=== PATIENT | female | born 1970 | race Caucasian/White ===

== ENCOUNTER 2016-08-14 04:59 | Inpatient (IN) | payer BC ==
[2016-08-14] MEDS ORDERED: EPINEPHRINE INJ/PF 1 MG/1 ML AMPULE IM ONE ×2 (05:11→07:04)
[2016-08-14] MEDS ORDERED: METHYLPREDNISOLONE INJ 125 MG/2 ML SDV IV ONE ×2 (05:12→09:00)
[2016-08-14] MEDS ORDERED: DIPHENHYDRAMINE HCL 50 MG/ML VIAL IV ONE (05:12)
[2016-08-14] MEDS ORDERED: FAMOTIDINE INJ/PF 20 MG/2 ML SDV IV ONE ×2 (05:12→08:30)
--- NOTE | 2016-08-14 05:19 | ER Document Report ---
ED Allergic Reaction - General Chief Complaint: Allergic Reaction Stated Complaint: POSSIBLE ALLERGY REACTION Time Seen by Provider: 08/14/16 05:11 Notes: Patient is a 46-year-old female who comes emergency department for chief complaint of allergic reaction, she states that she awoke this morning and found that she had lower lip swelling, swelling around her right eye towards her right ear, and an itchy rash over most of her body especially on the legs. She ate shrimp last night. Patient states that 2 days ago she broke out into a rash while walking outside, she was seen at urgent care and placed on prednisone and Benadryl, she states she took 60 mg of prednisone yesterday along with Benadryl. She had eaten shellfish just prior to this. Patient denies difficulty breathing or swallowing. Patient denies specific history of the same (although admits to mild rash with shellfish in the past), denies any new medications. - Related Data Allergies/Adverse Reactions: Sulfa (Sulfonamide Antibiotics) Allergy (Verified 08/14/16 05:15) Past Medical History - General Information source: Patient - Social History Smoking Status: Never Smoker Drug Abuse: None Lives with: Family Family History: Reviewed & Not Pertinent Psychiatric Medical History: Reports: Hx Depression Surgical Hx: Negative - Immunizations Immunizations up to date: Yes Hx Diphtheria, Pertussis, Tetanus Vaccination: Yes Review of Systems - Review of Systems Constitutional: No symptoms reported EENT: See HPI Cardiovascular: No symptoms reported Respiratory: No symptoms reported Gastrointestinal: No symptoms reported Genitourinary: No symptoms reported Female Genitourinary: No symptoms reported Musculoskeletal: No symptoms reported Skin: See HPI Hematologic/Lymphatic: No symptoms reported Neurological/Psychological: No symptoms reported Physical Exam - Vital signs Vitals: Temp Pulse Resp BP Pulse Ox 98.1 F 105 H 19 167/102 H 99 08/14/16 05:03 08/14/16 05:03 08/14/16 05:03 08/14/16 05:03 08/14/16 05:03 Interpretation: Normal - General General appearance: Anxious In distress: Mild - Patient with obvious rash, she is scratching, patient with obvious facial swelling - HEENT Head: Normocephalic, Atraumatic, Other - Patient with swelling of the lower lip on the right side, swelling around the periorbital area on the right side, eyelids are not completely shut Eyes: Normal Conjunctiva: Normal Extraocular movements intact: Yes Eyelashes: Normal Pupils: PERRL Pharynx: Normal. No: Uvular edema, Potential airway comprom. Neck: Normal - Respiratory Respiratory status: No respiratory distress. No: Labored, Tachypnea Chest status: Nontender Breath sounds: Normal. No: Decreased air movement, Stridor, Wheezing Chest palpation: Normal - Cardiovascular Rhythm: Regular, Tachycardia Heart sounds: Normal auscultation, S1 appreciated, S2 appreciated Murmur: No - Abdominal Inspection: Normal Distension: No distension Bowel sounds: Normal Tenderness: Nontender Organomegaly: No organomegaly - Back Back: Normal, Nontender - Extremities General upper extremity: Normal inspection, Nontender, Normal color, Normal ROM , Normal temperature General lower extremity: Normal inspection, Nontender, Normal color, Normal ROM , Normal temperature, Normal weight bearing. No: Jose's sign - Neurological Neuro grossly intact: Yes Cognition: Normal Orientation: AAOx4 [place] Coma Scale Eye Opening: Spontaneous [place] Coma Scale Verbal: Oriented Yasir Coma Scale Motor: Obeys Commands [place] Coma Scale Total: 15 Speech: Normal Motor strength normal: LUE, RUE, LLE, RLE Sensory: Normal - Psychological Associated symptoms: Anxious - Skin Skin Temperature: Warm Skin Moisture: Dry Skin Color: Normal Course - Re-evaluation Re-evalutation: 08/14/16 05:20 Lower lip swelling, slight swelling around the right orbit, with obvious urticaria mainly over the arms and legs, minimally on the back and abdomen. 0.3 mg IM epi given along with solu-medrol, benadryl, pepcid. Within 3 minutes patient had notable improvement especially of the lower lip and eye. On reevaluation patient's rash has completely resolved, facial swelling resolved. Patient only complaining of feeling jittery, lungs clear, airway intact. Will continue to monitor for potential rebound of symptoms after epinephrine wears off. Report given to Dr. Avila. 08/14/16 06:10 Still asymptomatic other than feeling slightly jittery, no evidence of rebound. Will continue to monitor. 08/14/16 07:15 Reevaluated again at bedside, patient noted to have right sided facial swelling the same as before, beginning to break out in hives over the face, body, legs, arms again. IM epi again given, again had rapid improvement. Starting epinephrine drip, will call for admission. Confirmed with Dr. Johnson. 08/14/16 07:[address] Simons, internal medicine, patient will be admitted to the hospital , she will come and evaluate the patient. - Vital Signs Vital signs: Temp Pulse Resp BP Pulse Ox 98.1 F 105 H 22 H 111/75 98 08/14/16 05:03 08/14/16 05:03 08/14/16 06:06 08/14/16 07:01 08/14/16 07:01 Critical Care Note - Critical Care Note Total time excluding time spent on procedures (mins): 40 - Anaphylaxis Comments: Please allow 40 minutes of critical care time for treatment of patient with anaphylaxis without shock, multiple re-evaluations, administration of multiple epinephrine doses, treatment with steroids, antihistamines, initiation of epinephrine drip, consultation and admission to the hospital. Discharge - Discharge Clinical Impression: Urticaria, Facial swelling Anaphylaxis Qualifiers: Encounter type: initial encounter Qualified Code(s): T78.2XXA - Anaphylactic shock, unspecified, initial encounter Allergic reaction Qualifiers: Encounter type: initial encounter Qualified Code(s): T78.40XA - Allergy, unspecified, initial encounter Condition: Stable Disposition: HOME, SELF-CARE Admitting Provider: Hospitalist Unit Admitted: ICU Additional Instructions: Continue the prednisone as directed, take either the zyrtec daily or the benadryl you were prescribed, in addition to this take the pepcid prescribed. If swelling of the face or difficulty breathing/swallowing occur, take the epi- pen and return immediately to the ED. Return for any other concerning symptoms. Prescriptions: Cetirizine HCl [Zyrtec 10 mg Tablet] 1 tab PO DAILY #30 tablet Epinephrine [Epipen 2-Gil] 0.3 mg IM ASDIR PRN #1 packet PRN Reason: Famotidine [Pepcid 20 mg Tablet] 20 mg PO BID #14 tablet Forms: Return to Work
[2016-08-14] MEDS ORDERED: ONDANSETRON HCL INJ/PF 4 MG/2 ML SDV IV ONE (06:05)
[2016-08-14] MEDS ORDERED: DEXTROSE 5%-WATER 250 ML with EPINEPHRINE/PF 1 MG IV PRN ×4 (07:13→09:21)
[2016-08-14] MEDS ORDERED: EPINEPHRINE INJ 30 MG/30 ML VIAL ONE (07:29)
[2016-08-14] MEDS ORDERED: EPINEPHRINE INJ/PF 1 MG/1 ML AMPULE ONE (07:32)
[2016-08-14] MEDS ORDERED: DIPHENHYDRAMINE HCL 50 MG/ML VIAL IV PRN (07:45)
[2016-08-14] MEDS ORDERED: EPINEPHRINE INJ/PF 1 MG/1 ML AMPULE IM PRN (08:19)
[2016-08-14] MEDS ORDERED: NORMAL SALINE 1000 ML 1,000 ML IV PRN (08:20)
[2016-08-14] MEDS ORDERED: ONDANSETRON HCL INJ/PF 4 MG/2 ML SDV IV PRN (08:28)
[2016-08-14] MEDS ORDERED: ACETAMINOPHEN 325 MG TABLET PO PRN (08:28)
[2016-08-14] MEDS ORDERED: LEVALBUTEROL HCL NEB 1.25 MG/3 ML AMPUL NEB PRN (08:28)
[2016-08-14] MEDS ORDERED: WATER IV PRN ×2 (08:58)
[2016-08-14] MEDS ORDERED: DEXTROSE 5% IV PRN ×2 (08:58)
[2016-08-14] MEDS ORDERED: EPINEPHRINE IV PRN ×2 (08:58)
[2016-08-14 09:53] LABS: HEMATOCRIT 38.2 % (36.0-47.0); HEMOGLOBIN 12.7 g/dL (12.0-15.5); HGB HCT DIFFERENCE -0.1; MEAN CORPUSCULAR HEMOGLOBIN 28.9 pg (27.0-33.4); MEAN CORPUSCULAR HGB CONC 33.3 g/dL (32.0-36.0); MEAN CORPUSCULAR VOLUME 87 fl (80-97); RED BLOOD COUNT 4.41 10^6/uL (3.72-5.28); RED CELL DISTRIBUTION WIDTH 13.9 % (11.5-14.0); WHITE BLOOD COUNT 13.2 10^3/uL (4.0-10.5)
[2016-08-14] MEDS ORDERED: DIPHENHYDRAMINE HCL 50 MG/ML VIAL IV SCH (10:00)
[2016-08-14 10:04] LABS: ALANINE AMINOTRANSFERASE 20 U/L (9-52); ALKALINE PHOSPHATASE 43 U/L (38-126); ANION GAP 15 (5-19); ASPARTATE AMINO TRANSFERASE 25 U/L (14-36); BILIRUBIN,DIRECT 0.4 mg/dL (0.0-0.4); BILIRUBIN,TOTAL 0.5 mg/dL (0.2-1.3); BLOOD UREA NITROGEN 12 mg/dL (7-20); CALCIUM 8.9 mg/dL (8.4-10.2); CARBON DIOXIDE 18 mmol/L (22-30); CHLORIDE 107 mmol/L (98-107); CREATININE RESULT 0.53 mg/dL (0.52-1.25); GLUCOSE 205 mg/dL (75-110); POTASSIUM 3.1 mmol/L (3.6-5.0); SODIUM 139.6 mmol/L (137-145); TOTAL PROTEIN 7.2 g/dL (6.3-8.2)
[2016-08-14 10:26] LABS: BASOPHILS % (MANUAL) 0 % (0-2); EOSINOPHILS % (MANUAL) 0 % (0-6); LYMPHOCYTES % (MANUAL) 2 % (13-45); RBC MORPHOLOGY COMMENT NORMO-CYTIC/CHROMIC; TOTAL CELLS COUNTED 100
[2016-08-14] MEDS: NORMAL SALINE 1000 ML 1,000 ML IV PRN ×2 (10:47→15:07)
[2016-08-14] MEDS: DIAZEPAM 5 MG TABLET PO PRN ×2 (10:48→18:33)
[2016-08-14] MEDS: DIPHENHYDRAMINE HCL 50 MG/ML VIAL IV SCH ×4 (10:50→21:24)
[2016-08-14] MEDS ORDERED: POTASSIUM CHLORIDE 10 MEQ TABLET.SA PO ONE (13:45)
--- NOTE | 2016-08-14 13:50 | RADIOLOGY REPORT (SQ) ---
EXAM DESCRIPTION: CHEST SINGLE VIEW COMPLETED DATE/TIME: 08/14/2016 1:42 pm REASON FOR STUDY: tachypnea COMPARISON: None. EXAM PARAMETERS: NUMBER OF VIEWS: One view. TECHNIQUE: Single frontal radiographic view of the chest acquired. RADIATION DOSE: NA LIMITATIONS: None. FINDINGS: LUNGS AND PLEURA: No opacities, masses or pneumothorax. No pleural effusion. MEDIASTINUM AND HILAR STRUCTURES: No masses. Contour normal. HEART AND VASCULAR STRUCTURES: Heart normal in size. Normal vasculature. BONES: No acute findings. HARDWARE: None in the chest. OTHER: No other significant finding. IMPRESSION: NO ACUTE RADIOGRAPHIC FINDING IN THE CHEST. TECHNICAL DOCUMENTATION: JOB ID: [id number]
--- NOTE | 2016-08-14 14:57 | PDOC H&P ---
History of Present Illness Admission Date/PCP: 08/14/16 History of Present Illness: Patient is a 46-year-old female who comes emergency department for chief complaint of allergic reaction, she states that she awoke this morning and found that she had lower lip swelling, swelling around her right eye towards her right ear, and an itchy rash over most of her body especially on the legs. She ate shrimp last night. Patient states that 2 days ago she broke out into a rash while walking outside after eating a shrimp burger, she was seen at urgent care and placed on prednisone and Benadryl, she states she took 60 mg of prednisone yesterday along with Benadryl. Patient denies difficulty breathing or swallowing. Patient denies specific history of the same (although admits to mild rash with shellfish in the past), denies any new medications. Referred to the hospitalist service for treatment. Past Medical History Psychiatric Medical History: Reports: Depression Past Surgical History Past Surgical History: Reports: Section Social History Lives with: Family Smoking Status: Current Some Day Smoker Frequency of Alcohol Use: None Amount of Alcoholic Beverages Per Day: prior alcoholism Hx Recreational Drug Use: No Hx Prescription Drug Abuse: No - Advance Directive Resuscitation Status: Full Code Surrogate healthcare decision maker:: Family History Family History: DM, Other - dementia Parental Family History Reviewed: Yes Children Family History Reviewed: Yes Sibling(s) Family History Reviewed.: Yes Medication/Allergy Home Medications: Disulfiram [Disulfiram] 250 mg PO DAILY 08/14/16 Escitalopram Oxalate [Lexapro 10 mg Tablet] 10 mg PO DAILY 08/14/16 Allergies/Adverse Reactions: Sulfa (Sulfonamide Antibiotics) Allergy (Verified 08/14/16 05:15) Review of Systems Constitutional: ABSENT: chills, fever(s), headache(s), weight gain, weight loss Eyes: ABSENT: visual disturbances Ears: ABSENT: hearing changes Cardiovascular: ABSENT: chest pain, dyspnea on exertion, edema, orthropnea, palpitations Respiratory: ABSENT: cough, hemoptysis Gastrointestinal: ABSENT: abdominal pain, constipation, diarrhea, hematemesis, hematochezia, nausea, vomiting Genitourinary: ABSENT: dysuria, hematuria Musculoskeletal: ABSENT: joint swelling Integumentary: PRESENT: pruritus, rash. ABSENT: wounds Neurological: ABSENT: abnormal gait, abnormal speech, confusion, dizziness, focal weakness, syncope Psychiatric: ABSENT: anxiety, depression, homidical ideation, suicidal ideation Endocrine: ABSENT: cold intolerance, heat intolerance, polydipsia, polyuria Hematologic/Lymphatic: ABSENT: easy bleeding, easy bruising Allergic/Immunologic: PRESENT: as per HPI Physical Exam Vital Signs: Temp Pulse Resp BP Pulse Ox 98.1 F 105 H 22 H 111/75 98 08/14/16 05:03 08/14/16 05:03 08/14/16 06:06 08/14/16 07:01 08/14/16 07:01 Intake & Output 08/13/16 08/14/16 08/15/16 06:59 06:59 06:59 Weight 65.771 kg General appearance: PRESENT: mild distress, well-developed, well-nourished Head exam: PRESENT: atraumatic, normocephalic, other - facial swelling and urticaria Eye exam: PRESENT: conjunctiva pink, EOMI, periorbital swelling, PERRLA. ABSENT : scleral icterus Ear exam: PRESENT: normal external ear exam Mouth exam: PRESENT: moist, tongue midline Neck exam: ABSENT: JVD, lymphadenopathy, thyromegaly, tracheal deviation Respiratory exam: PRESENT: clear to auscultation geronimo. ABSENT: rales, rhonchi, wheezes Cardiovascular exam: PRESENT: RRR, +S1, +S2, tachycardia. ABSENT: diastolic murmur, gallop, rubs, systolic murmur Pulses: PRESENT: normal dorsalis pedis pul Vascular exam: PRESENT: normal capillary refill GI/Abdominal exam: PRESENT: normal bowel sounds, soft. ABSENT: distended, guarding, mass, organolmegaly, rebound, tenderness Rectal exam: PRESENT: deferred Extremities exam: PRESENT: full ROM. ABSENT: calf tenderness, clubbing, pedal edema Neurological exam: PRESENT: alert, awake, oriented to person, oriented to place , oriented to time, oriented to situation, CN II-XII grossly intact. ABSENT: motor sensory deficit Psychiatric exam: PRESENT: appropriate affect, normal mood. ABSENT: homicidal ideation, suicidal ideation Skin exam: PRESENT: dry, intact, urticaria, warm. ABSENT: cyanosis Assessment & Plan - Diagnosis (1) Anaphylaxis Qualifiers: Encounter type: initial encounter Qualified Code(s): T78.2XXA - Anaphylactic shock, unspecified, initial encounter Is this a current diagnosis for this admission?: YesPlan: Patient with prolonged anaphylaxis. Patient started on scheduled IV benadryl, pepcid, solumedrol and epinepherine ggt. patient was mildly responsive to IM epinepherine x3 but always with a return to her facial swelling and facial uriticaria. Place patient in the ICU for monitoring. Given food allergy emergency action plan for discharge and has been instructed to see an anhydrous ammonia production supervisor after discharge. (2) Depression Qualifiers: Depression Type: unspecified Qualified Code(s): F32.9 - Major depressive disorder, single episode, unspecified Is this a current diagnosis for this admission?: YesPlan: Continue celexa (3) Hypokalemia Is this a current diagnosis for this admission?: YesPlan: replete and check magnesium (4) Impaired fasting blood sugar Is this a current diagnosis for this admission?: YesPlan: Check HgbA1c - Time Time Spent: 50 to 70 Minutes Critical Time spent with patient: 35 or more minutes Medications reviewed and adjusted accordingly: Yes Anticipated discharge: Home Within: within 24 hours, within 48 hours - Inpatient Certification Based on my medical assessment, after consideration of the patient's comorbidities, presenting symptoms, or acuity I expect that the services needed warrant INPATIENT care.: Yes I certify that my determination is in accordance with my understanding of Medicare's requirements for reasonable and necessary INPATIENT services [42 CFR 412.3e].: Yes Medical Necessity: Significant Comorbidiites Make Outpatient Treatment Too Risky , Need Close Monitoring Due to Risk of Patient Decompensation, Need For Continuous Telemetry Monitoring Post Hospital Care: D/C Packing Shed Supervisor Documentation
[2016-08-14] MEDS: METHYLPREDNISOLONE INJ 125 MG/2 ML SDV IV SCH ×2 (15:06→21:24)
[2016-08-14] MEDS: POTASSI CL 20 MEQ/50 ML RIDER 50 ML IV SCH ×3 (15:09→18:33)
[2016-08-14] MEDS ORDERED: METHYLPREDNISOLONE INJ 125 MG/2 ML SDV IV SCH (18:00)
--- NOTE | 2016-08-14 21:13 | EKG REPORT ---
SEVERITY:- ABNORMAL ECG - SINUS RHYTHM NONSPECIFIC T ABNORMALITIES, INFERIOR LEADS : Confirmed by: Neda Hollins 14-Aug-2016 21:12:56
[2016-08-15] MEDS ORDERED: METHYLPREDNISOLONE INJ 125 MG/2 ML SDV ONE (02:47)
[2016-08-15] MEDS: DIPHENHYDRAMINE HCL 50 MG/ML VIAL IV SCH ×3 (02:53→09:29)
[2016-08-15] MEDS: METHYLPREDNISOLONE INJ 125 MG/2 ML SDV IV SCH ×2 (02:54→09:29)
[2016-08-15] MEDS: DIAZEPAM 5 MG TABLET PO PRN (02:54)
[2016-08-15] MEDS: NORMAL SALINE 1000 ML 1,000 ML IV PRN ×2 (03:17→07:00)
[2016-08-15 06:56] LABS: ABSOLUTE LYMPHOCYTES (AUTO) 0.6 10^3/uL (0.5-4.7); ABSOLUTE MONOCYTES (AUTO) 0.1 10^3/uL (0.1-1.4); ABSOLUTE NEUT (AUTO) 8.5 10^3/uL (1.7-8.2); BASOPHILS % (AUTO) 0.1 % (0-2); HEMATOCRIT 35.1 % (36.0-47.0); HEMOGLOBIN 12.1 g/dL (12.0-15.5); HGB HCT DIFFERENCE 1.2; LYMPHOCYTES % (AUTO) 6.5 % (13-45); MEAN CORPUSCULAR HEMOGLOBIN 30.2 pg (27.0-33.4); MEAN CORPUSCULAR HGB CONC 34.4 g/dL (32.0-36.0); MEAN CORPUSCULAR VOLUME 88 fl (80-97); MONOCYTES % (AUTO) 1.5 % (3-13); RED BLOOD COUNT 3.99 10^6/uL (3.72-5.28); RED CELL DISTRIBUTION WIDTH 14.1 % (11.5-14.0); SEGMENTED NEUTROPHILS % (AUTO) 91.9 % (42-78); WHITE BLOOD COUNT 9.2 10^3/uL (4.0-10.5)
[2016-08-15 07:10] LABS: ALANINE AMINOTRANSFERASE 25 U/L (9-52); ALBUMIN 3.6 g/dL (3.5-5.0); ALKALINE PHOSPHATASE 40 U/L (38-126); ANION GAP 12 (5-19); ASPARTATE AMINO TRANSFERASE 23 U/L (14-36); BILIRUBIN,DIRECT 0.2 mg/dL (0.0-0.4); BILIRUBIN,TOTAL 0.3 mg/dL (0.2-1.3); BLOOD UREA NITROGEN 11 mg/dL (7-20); CALCIUM 9.2 mg/dL (8.4-10.2); CARBON DIOXIDE 18 mmol/L (22-30); CHLORIDE 109 mmol/L (98-107); CREATININE RESULT 0.51 mg/dL (0.52-1.25); GLUCOSE 138 mg/dL (75-110); SODIUM 138.8 mmol/L (137-145); TOTAL PROTEIN 6.4 g/dL (6.3-8.2)
[2016-08-15 07:25] LABS: POTASSIUM 4.1 mmol/L (3.6-5.0)
[2016-08-15] MEDS ORDERED: ENOXAPARIN SODIUM INJ 30 MG/0.3 ML DISP.SYRIN SUBCUT SCH (08:00)
--- NOTE | 2016-08-15 08:05 | DISCHARGE SUMMARY E ---
Discharge Summary NAME: WES HAMM : 1970 AGE: 46Y ADMITTED: 08/14/2016 DISCHARGED: 08/15/2016 TIME SPENT: Time spent on managing patient, 30 minutes. DISCHARGE DIAGNOSES: 1. Allergic reaction to shrimp. 2. Mild anaphylaxis. 3. Urticaria. 4. Depression. 5. Hypokalemia. 6. Hypomagnesemia. DISCHARGE MEDICATIONS: 1. Medrol Dose pack as directed. 2. Claritin 10 mg daily x5 days. 3. Benadryl 25 mg p.o. every 6 hours p.r.n. allergic reaction. 4. EpiPen 0.3 mg IM every 5 minutes p.r.n. 5. Continue home medications which include: Lexapro 10 mg daily; disulfiram 250 mg daily. HOSPITAL COURSE: The patient was admitted for allergic reaction to shrimp with diffuse urticaria and mild swelling of the upper lip. She had no airway compromise but was observed in the intensive care unit for early anaphylaxis. She was treated with IV Solu-Medrol. She had previously been treated as outpatient with prednisone at an urgent care center, but her symptoms worsened despite this treatment. Symptoms completely resolved in the hospital. She is now aware that she needs to avoid shrimp products and seafood. She was discharged home on the above-mentioned medications in stable condition. She should see an reference investigator after discharge. She lives in [place], [place] and is going to be returning home today. DISCHARGE CONDITION: Stable. DISCHARGE DIET: Regular diet. DISCHARGE ALLERGIES: 1. SULFA. 2. SHELLFISH. CODE STATUS: FULL CODE status. PHYSICAL EXAMINATION: VITAL SIGNS: At the time of discharge, temperature 97.9, blood pressure 120/87, pulse 76, respirations 14. GENERAL: She is alert, in no acute distress. Answers questions appropriately. HEENT: Sclerae are anicteric. Oropharynx is patent with moist mucous membranes and no swelling of the tongue or lips. RESPIRATORY: Clear to auscultation. No wheezes. CARDIAC: Regular rate and rhythm. ABDOMEN: Soft and nontender. EXTREMITIES: No edema. LABS: White blood cell count 9.2, hemoglobin 12.1, hematocrit 35.1, platelets 157,000. Sodium 138, potassium 4.1, chloride 109, bicarb 18, BUN 11, creatinine 0.51, glucose 138, A1c 4.9, calcium 9.2, magnesium 1.7, total bili 0.3, AST 23, ALT 25, alkaline phosphatase 40, albumin 3.6. DICTATING PHYSICIAN: ASTRID MONTGOMERY M.D. [id number] PHY#: [id number] ID: [id number] JOB#: [id number] ACCT: [id number] cc:Mariusz MERINO >
[2016-08-15 08:52] VITALS: BP 131/83
[2016-08-15] MEDS ORDERED: ESCITALOPRAM OXALATE 10 MG TABLET PO SCH (10:00)
== END 2016-08-15 09:59 | disposition home or self-care (01) | DRG 916 ==
LOC: ER 04:59 → EH 08:28 → UNDOADMIN 08:42 → EH 08:42 → UNDOADMIN 08:44 → ICU 12:22
PROVIDERS: ADMIT Family Medicine; ATTEND Family Medicine
DX: T78.02XA Anaphylactic reaction due to shellfish (crustaceans), initial encounter (principal); L50.0 Allergic urticaria; F32.9 Major depressive disorder, single episode, unspecified; E87.5 Hyperkalemia; E83.42 Hypomagnesemia; Z88.2 Allergy status to sulfonamides; F17.200 Nicotine dependence, unspecified, uncomplicated; Z83.3 Family history of diabetes mellitus; F10.20 Alcohol dependence, uncomplicated
CPT/HCPCS: 36415; 71010; 80053; 83036; 83735; 84484; 85025; 93005; 93010; 96372; 96374; 96375; 99291; J0171; J1200; J2405; J2930; J3480; J3490; J7030; S0028